=== PATIENT | male | born 1935 | race Caucasian/White ===

== ENCOUNTER 2016-12-26 20:10 | Inpatient (IN) | payer MEDICARE ==
[~2016-12-26] VITALS: Ht 170.2 cm; Wt 70.5 kg
[~2016-12-26 20:10] MED LIST: AUGM500T7 PO; CALCTAB98 PO; CENTCHW3 PO; CO Q60CA2 PO; FISH1200 PO; FOLI400T30 PO; GLUCTAB6 PO; PANT40IN3 PO; [UNRECOGNIZED DRUG - CODE] PO
[2016-12-26 20:16] VITALS: BP 185/84; PULSE 76; RESP 26; TEMP 97.7; O2SAT 96
[2016-12-26] MEDS ORDERED: ZYTI250T PO (20:27)
[2016-12-26] MEDS ORDERED: FOLI20CA (20:27)
[2016-12-26] MEDS ORDERED: PLAV75TA29 PO (20:27)
[2016-12-26] MEDS ORDERED: GLUCCAP (20:27)
[2016-12-26] MEDS ORDERED: ROSU5 PO (20:27)
[2016-12-26] MEDS ORDERED: COQ1100C (20:27)
[2016-12-26] MEDS ORDERED: SODIUM CHLORIDE 0.9% FLUSH 5 ML FLUSH IVF PRN (20:45)
[2016-12-26 21:00] LABS: AUTOMATED NEUTROPHIL # 6.9 TH/MM3 (1.8-7.7); BASOPHIL # 0.1 TH/MM3 (0-0.2); BASOPHIL % 0.8 % (0.0-2.0); EOSINOPHIL % 0.2 % (0.0-4.0); HEMATOCRIT 33.8 % (39.0-51.0); HEMO FLAGS DIFF FINAL; LYMPH % 13.2 % (9.0-44.0); LYMPHOCYTE # 1.2 TH/MM3 (1.0-4.8); MEAN CORPUSCULAR HEMOGLOBIN 34.1 PG (27.0-34.0); MEAN CORPUSCULAR HGB CONC 35.2 % (32.0-36.0); NEUT % 77.8 % (16.0-70.0); PLATELET COUNT 153 TH/MM3 (150-450); RED BLOOD COUNT 3.49 MIL/MM3 (4.50-5.90); WHITE BLOOD COUNT 8.9 TH/MM3 (4.0-11.0)
[2016-12-26 21:15] LABS: ANION GAP 12 MEQ/L (5-15); AST (GOT) 35 U/L (15-37); BICARBONATE 20.1 MEQ/L (21.0-32.0); BLOOD UREA NITROGEN 34 MG/DL (7-18); CHLORIDE 105 MEQ/L (98-107); GLOMERULAR FILTRATION RATE 42 ML/MIN (>89); POTASSIUM 3.5 MEQ/L (3.5-5.1); SODIUM (NA) 137 MEQ/L (136-145)
[2016-12-26] MEDS ORDERED: MORPHINE SULFATE 4 MG/ML INJ IV PUSH ONE (21:15)
[2016-12-26 21:18] LABS: ALKALINE PHOSPHATASE 52 U/L (45-117); ALT (GPT) 27 U/L (12-78); TOTAL BILIRUBIN ADULT 0.9 MG/DL (0.2-1.0)
[2016-12-26 21:23] LABS: PROTHROMBIN TIME - PATIENT 10.8 SEC (9.8-11.6)
--- NOTE | 2016-12-26 22:19 | PD ---
HPI Chief Complaint: Bleeding Time Seen by Provider: 20:28 Travel History International Travel<30 days: No Contact w/Intl Traveler<30days: No Traveled to known affect area: No History of Present Illness HPI 81-year-old male with history of prostate cancer status post prostate resection , [facility] urologist Dr. Cid earlier today and had a Maldonado catheter placed, brought in by EMS from home for evaluation of severe suprapubic and penile pain. The patient reports that he was having some suprapubic pain and around noon today which worsen, so he decided to present to the urology office. He is not sure exactly why they placed a Maldonado catheter, but it sounds like he may been in urinary retention. Patient has also noted a significant amount of blood in the Maldonado bag. Pain is 12 out of 10, constant, pressure-like. The patient was given 4 mg of IV morphine by EMS with moderate improvement in pain. He denies fevers or chills. No nausea or vomiting. PFSH Past Medical History Hx Anticoagulant Therapy: Yes (PLAVIX) Arthritis: Yes Asthma: No Autoimmune Disease: No Blood Disorders: Yes Anxiety: No Depression: No Heart Rhythm Problems: No Cancer: Yes (PROSTATE WAS REMOVED) Cardiac Catheterization: Yes Cardiovascular Problems: Yes High Cholesterol: Yes Chemotherapy: No Chest Pain: Yes Congestive Heart Failure: Yes COPD: Yes Cerebrovascular Accident: No Coronary Artery Disease: Yes Diabetes: No Diminished Hearing: Yes (PAUMA) Endocrine: No Gastrointestinal Disorders: Yes GERD: Yes Genitourinary: Yes Hiatal Hernia: No Hypertension: Yes Immune Disorder: No Implanted Vascular Access Dvce: Yes 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) Neurologic: Yes Psychiatric: No Reproductive: No Respiratory: No Immunizations Current: Yes Myocardial Infarction: Yes Radiation Therapy: Yes Sleep Apnea: No Thyroid Disease: No Ulcer: No Tetanus Vaccination: > 5 Years Past Surgical History Abdominal Surgery: No AICD: No Arteriovenous Shunt: No Body Medical Devices: Coronary Stents x 7, Lg Stent x 1 in Upper Right Thigh Cardiac Surgery: Yes (7 STENTS IN HEART , RIGHT THIGH WITH STENT) Coronary Stent: Yes (5 STENTS) Ear Surgery: No Eye Surgery: Yes (VIKI CATARACTS REMOVED) Genitourinary Surgery: Yes (PROSTATE REMOVED, CYSTOSCOPY X 5) Insulin Pump: No Joint Replacement: No Oral Surgery: No Pacemaker: No Thoracic Surgery: No Other Surgery: Yes (CATARACTS) Social History Alcohol Use: Yes Tobacco Use: No (QUIT 1991) Substance Use: No Allergies-Medications (Allergen,Severity, Reaction): Coded Allergies: LIZZY Inhibitors (Verified Allergy, Severe, 12/25/15) Percocet (Verified Allergy, Severe, Hallucinations, 12/25/15) Zithromax (Verified Allergy, Severe, 12/25/15) Reported Meds & Prescriptions Reported Meds & Active Scripts Active Reported Crestor (Rosuvastatin Calcium) 5 Mg Tab 5 Mg PO DAILY Plavix (Clopidogrel Bisulfate) 75 Mg Tab 75 Mg PO DAILY Folic Acid 20 Mg Cap Glucosamine Chondroitin C (Arsasmiasjh-Jhevdudripc-Otmxme) 1 Cap Cap Coq10 (Coenzyme Q10 (Ubidecarenone)) 100 Mg Cap Zytiga (Abiraterone) 250 Mg Tab 1,000 Mg PO DAILY Hazardous agent; use appropriate precautions for handling & disposal. Take on an empty stomach, 1 hr before or 2 hrs after food. Swallow whole, do not crush or chew. Fish Oil (Pep-3 Fatty Acids) 1,200 Mg Cap 1 Cap PO DAILY Review of Systems Except as stated in HPI: all other systems reviewed are Neg Physical Exam Narrative GENERAL: Well-developed, well-nourished, mild distress secondary to pain. SKIN: Warm and dry. No pallor. HEAD: Atraumatic. Normocephalic. EYES: Pupils equal and round. No scleral icterus. No injection or drainage. ENT: Mucous membranes pink and moist. CARDIOVASCULAR: Regular rate and rhythm. RESPIRATORY: No accessory muscle use. Clear to auscultation. Breath sounds equal bilaterally. GASTROINTESTINAL: Abdomen soft, nondistended. Mild suprapubic tenderness. Rest of abdomen is soft and nontender. No peritoneal signs. Normal bowel sounds. : Maldonado in place with dark red blood in Maldonado bag. Normal external genitalia. No crepitus or skin color changes. No masses. MUSCULOSKELETAL: No obvious deformities. No clubbing. No cyanosis. No edema. NEUROLOGICAL: Awake and alert. No obvious cranial nerve deficits. Motor grossly within normal limits. Normal speech. PSYCHIATRIC: Appropriate mood and affect; insight and judgment normal. Data Data Last Documented VS Vital Signs Date Time Temp Pulse Resp B/P Pulse Ox O2 Delivery O2 Flow Rate FiO2 12/26/16 20:16 97.7 76 26 185/84 96 Orders Complete Blood Count With Diff (12/26/16 20:34) Comprehensive Metabolic Panel (12/26/16 20:34) Prothrombin Time / Inr (Pt) (12/26/16 20:34) Act Partial Throm Time (Ptt) (12/26/16 20:34) Iv Access Insert/Monitor (12/26/16 20:34) Ecg Monitoring (12/26/16 20:34) Oximetry (12/26/16 20:34) Sodium Chloride 0.9% Flush (Ns Flush) (12/26/16 20:45) Ct Abd/Pel W Iv Contrast(Rout) (12/26/16 20:44) Morphine Inj (Morphine Inj) (12/26/16 21:15) Iohexol 350 Inj (Omnipaque 350 Inj) (12/26/16 22:38) Bladder/Catheter Irrigation (12/26/16 23:08) Lidocaine 2% Jelly (Xylocaine 2% Jelly) (12/26/16 23:15) Urinary Catheter Insert/Apply (12/26/16 23:08) Labs Laboratory Tests Test 12/26/16 20:46 White Blood Count 8.9 TH/MM3 Red Blood Count 3.49 MIL/MM3 Hemoglobin 11.9 GM/DL Hematocrit 33.8 % Mean Corpuscular Volume 97.0 FL Mean Corpuscular Hemoglobin 34.1 PG Mean Corpuscular Hemoglobin 35.2 % Concent Red Cell Distribution Width 15.0 % Platelet Count 153 TH/MM3 Mean Platelet Volume 9.3 FL Neutrophils (%) (Auto) 77.8 % Lymphocytes (%) (Auto) 13.2 % Monocytes (%) (Auto) 8.0 % Eosinophils (%) (Auto) 0.2 % Basophils (%) (Auto) 0.8 % Neutrophils # (Auto) 6.9 TH/MM3 Lymphocytes # (Auto) 1.2 TH/MM3 Monocytes # (Auto) 0.7 TH/MM3 Eosinophils # (Auto) 0.0 TH/MM3 Basophils # (Auto) 0.1 TH/MM3 CBC Comment DIFF FINAL Differential Comment Prothrombin Time 10.8 SEC Prothromb Time International 1.0 RATIO Ratio Activated Partial 21.0 SEC Thromboplast Time Sodium Level 137 MEQ/L Potassium Level 3.5 MEQ/L Chloride Level 105 MEQ/L Carbon Dioxide Level 20.1 MEQ/L Anion Gap 12 MEQ/L Blood Urea Nitrogen 34 MG/DL Creatinine 1.60 MG/DL Estimat Glomerular Filtration 42 ML/MIN Rate Random Glucose 156 MG/DL Calcium Level 8.9 MG/DL Total Bilirubin 0.9 MG/DL Aspartate Amino Transf 35 U/L (AST/SGOT) Alanine Aminotransferase 27 U/L (ALT/SGPT) Alkaline Phosphatase 52 U/L Total Protein 7.3 GM/DL Albumin 3.7 GM/DL [facility] Medical Decision Making Medical Screen Exam Complete: Yes Emergency Medical Condition: Yes Medical Record Reviewed: Yes Differential Diagnosis Hematuria, urinary retention, anemia Narrative Course Chart review shows that the patient had a CT abdomen pelvis in 2014 which shows a large bladder stone. Patient's Maldonado has been flushed with about a liter of normal saline and is still producing dark red blood. He is on Plavix. This was discussed with on- call urologist Dr. Black who agrees that if dark red bloody is not clearing, then CBI should be started and the patient should be admitted for overnight observation with urology consultation. Initial vital signs show heart rate 76, blood pressure 185/84, pulse ox 96% on room air, axillary temp of 97.7F. CBC shows to be BC 8.9, hemoglobin 11.9, hematocrit 33.8, platelets 153 CMP is remarkable for BUN 34, creatinine 1.6, GFR [address] abdomen pelvis: CONCLUSION: Large heterogeneous filling defect in the urinary bladder. This may represent a combination of mass and hemorrhage. Mild/moderate bilateral hydronephrosis. Enlarging pancreatic cystic lesion which may represent a benign epithelial cyst. Colonic diverticulosis without evidence of active inflammatory disease. No evidence of malignant lymphadenopathy or destructive bone lesions. Heavily calcified coronary arteries. Evidence of previous prostate surgery. The patient's pain has significantly improved after receiving morphine and after his Maldonado has been flushed. A bedside ultrasound was performed on initial presentation and show that the bladder was moderately filled. The patient was made aware of all findings. His urine is still dark red. Three -way catheter will be inserted for CBI and the patient will be admitted for overnight observation for urology consultation. The patient reports that his urologist is Dr. Lopez. Case discussed with [facility] hospitalist Dr. Denise. The patient will be admitted to their service under Dr. Soto. Diagnosis Primary Impression: Gross hematuria Additional Impression: Urinary retention Admitting Information Admitting Physician Requests: Observation Arsen Victoria MD Dec 26, 2016 22:19
[2016-12-26] MEDS ORDERED: IOHEXOL 350 MG/ML 10 ML VIAL (for RAD DIAG) IV ONE (22:38)
--- NOTE | 2016-12-26 23:04 | RADRPT ---
EXAM DATE/TIME: 12/26/2016 22:20 [place] COMPARISON: CT ABDOMEN & PELVIS W CONTRAST, July 06, 2015, 1:40. INDICATIONS : Recent catheter placement, now with pain and bleeding. IV CONTRAST: 94 cc Omnipaque 350 (iohexol) IV ORAL CONTRAST: No oral contrast ingested. RADIATION DOSE: 20.41 CTDIvol (mGy) MEDICAL HISTORY : Cardiovascular disease. Hypertension. Carcinoma, prostate. SURGICAL HISTORY : Prostatectomy. ENCOUNTER: Initial ACUITY: 1 day PAIN SCALE: 5/10 LOCATION: Bilateral lower quadrant TECHNIQUE: Volumetric scanning of the abdomen and pelvis was performed. Using automated exposure control and ad justment of the mA and/or kV according to patient size, radiation dose was kept as low as reasonably achievable to obtain optimal diagnostic quality images. FINDINGS: LOWER LUNGS: The visualized lower lungs are clear. LIVER: Homogeneous density without lesion. There is no dilation of the biliary tree. No calcified gallston es. SPLEEN: Normal size without lesion. PANCREAS: A cystic lesion in the body of the pancreas has enlarged compared to prior study in 2015. It previous ly measured 1.9 cm and currently measures 3.0 cm. It continues to have the appearance of the simple c yst without evidence of abnormal enhancement or nodularity. Pancreas is otherwise unremarkable. KIDNEYS: Mild to moderate hydronephrosis has developed within the right kidney. There is mild distention of th e right ureter to the urinary bladder. The left renal collecting system also appears mildly distended . There are no focal suspicious renal lesions. ADRENAL GLANDS: Within normal limits. VASCULAR: Calcific upper tract disease is seen throughout the abdominal aorta. Aortic diameter stable. BOWEL/MESENTERY: Numerous diverticula are present throughout the colon. There are no active inflammatory changes. Ther e is no evidence of obstructive gas pattern or extra intestinal fluid collections. ABDOMINAL WALL: Within normal limits. RETROPERITONEUM: There is no lymphadenopathy. BLADDER: A large heterogeneous appearing filling defect is identified in the urinary bladder. Maldonado catheter i s noted in place. REPRODUCTIVE: Postsurgical clips are seen in the region of the prostate gland. INGUINAL: There is no lymphadenopathy or hernia. MUSCULOSKELETAL: Within normal limits for patient age. CONCLUSION: Large heterogeneous filling defect in the urinary bladder. This may represent a combination of mass a nd hemorrhage. Mild/moderate bilateral hydronephrosis. Enlarging pancreatic cystic lesion which may represent a benign epithelial cyst. Colonic diverticulosis without evidence of active inflammatory disease. No evidence of malignant lymphadenopathy or destructive bone lesions. Heavily calcified coronary arteries. Evidence of previous prostate surgery. Goyo Reese MD on December 26, 2016 at 22:51 Board Certified Radiologist. This report was verified electronically.
[2016-12-26] MEDS ORDERED: LIDOCAINE 2% JELLY 30 ML TUBE TOPICAL ONE (23:15)
--- NOTE | 2016-12-26 23:41 | HHI.HP ---
HPI Service [facility] Hospitalists Primary Care Physician Opal Samson M.D. Admission Diagnosis gross hematuria, urinary retention Chief Complaint: recurrent bleeding after quintanilla inserted at urology Travel History International Travel<30 Days: No Contact w/Intl Traveler <30 Da: No Traveled to Known Affected Are: No History of Present Illness 81-year-old male with history of prostate cancer status post prostate resection , [facility] urologist Dr. Cid earlier today and had a Quintanilla catheter placed, brought in by EMS from home for evaluation of severe suprapubic and penile pain. The patient reports that he was having some suprapubic pain and around noon today which worsen, so he decided to present to the urology office. He is not sure exactly why they placed a Quintanilla catheter, but it sounds like he may been in urinary retention. Patient has also noted a significant amount of blood in the Quintanilla bag. Pain is 12 out of 10, constant, pressure-like. The patient was given 4 mg of IV morphine by EMS with moderate improvement in pain. He denies fevers or chills. No nausea or vomiting Patient's Quintanilla has been flushed with about a liter of normal saline and is still producing dark red blood. He is on Plavix. This was discussed with on- call urologist Dr. Black who agrees that if dark red bloody is not clearing, then CBI should be started and the patient should be admitted for overnight observation with urology consultation. 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 Review of Systems Genitourinary: COMPLAINS OF: Hematuria Past Family Social History Past Medical History cad s/p stent djd chf,copd,hyperlipidemia mi Past Surgical History prostate removal according to patient bone mets on chemo agent stents Reported Medications crestor 5 ,plavix 75 folic acid,zytiga Allergies: Coded Allergies: LIZZY Inhibitors (Verified Allergy, Severe, 12/25/15) Percocet (Verified Allergy, Severe, Hallucinations, 12/25/15) Zithromax (Verified Allergy, Severe, 12/25/15) Social History NS,ND Physical Exam Vital Signs Vital Signs Date Time Temp Pulse Resp B/P Pulse Ox O2 Delivery O2 Flow Rate FiO2 12/26/16 20:16 97.7 76 26 185/84 96 Physical Exam GENERAL: This is a well-nourished, well-developed patient, in no apparent distress. SKIN: No rashes, ecchymoses or lesions. Cool and dry. HEAD: Atraumatic. Normocephalic. No temporal or scalp tenderness. EYES: Pupils equal round and reactive. Extraocular motions intact. No scleral icterus. No injection or drainage. ENT: Nose without bleeding, purulent drainage or septal hematoma. Throat without erythema, tonsillar hypertrophy or exudate. Uvula midline. Airway patent. NECK: Trachea midline. No JVD or lymphadenopathy. Supple, nontender, no meningeal signs. CARDIOVASCULAR: Regular rate and rhythm without murmurs, gallops, or rubs. RESPIRATORY: Clear to auscultation. Breath sounds equal bilaterally. No wheezes , rales, or rhonchi. GASTROINTESTINAL: Abdomen pain on bladder palpation and lower abdomen no rebound. MUSCULOSKELETAL: Extremities without clubbing, cyanosis, or edema. No joint tenderness, effusion, or edema noted. No calf tenderness. Negative Homans sign bilaterally. NEUROLOGICAL: Awake and alert. Cranial nerves II through XII intact. Motor and sensory grossly within normal limits. Five out of 5 muscle strength in all muscle groups. Normal speech. Laboratory Laboratory Tests Test 12/26/16 20:46 White Blood Count 8.9 Red Blood Count 3.49 Hemoglobin 11.9 Hematocrit 33.8 Mean Corpuscular Volume 97.0 Mean Corpuscular Hemoglobin 34.1 Mean Corpuscular Hemoglobin 35.2 Concent Red Cell Distribution Width 15.0 Platelet Count 153 Mean Platelet Volume 9.3 Neutrophils (%) (Auto) 77.8 Lymphocytes (%) (Auto) 13.2 Monocytes (%) (Auto) 8.0 Eosinophils (%) (Auto) 0.2 Basophils (%) (Auto) 0.8 Neutrophils # (Auto) 6.9 Lymphocytes # (Auto) 1.2 Monocytes # (Auto) 0.7 Eosinophils # (Auto) 0.0 Basophils # (Auto) 0.1 CBC Comment DIFF FINAL Differential Comment Prothrombin Time 10.8 Prothromb Time International 1.0 Ratio Activated Partial 21.0 Thromboplast Time Sodium Level 137 Potassium Level 3.5 Chloride Level 105 Carbon Dioxide Level 20.1 Anion Gap 12 Blood Urea Nitrogen 34 Creatinine 1.60 Estimat Glomerular Filtration 42 Rate Random Glucose 156 Calcium Level 8.9 Total Bilirubin 0.9 Aspartate Amino Transf 35 (AST/SGOT) Alanine Aminotransferase 27 (ALT/SGPT) Alkaline Phosphatase 52 Total Protein 7.3 Albumin 3.7 Result Diagram: 12/26/16204512/26/162045 Imaging Last 24 hours Impressions Abdomen/Pelvis CT 12/26/162043 Signed Impressions: Service Date/Time: Monday, December 26, 2016 22:20 - CONCLUSION: Large heterogeneous filling defect in the urinary bladder. This may represent a combination of mass and hemorrhage. Mild/moderate bilateral hydronephrosis. Enlarging pancreatic cystic lesion which may represent a benign epithelial cyst. Colonic diverticulosis without evidence of active inflammatory disease. No evidence of malignant lymphadenopathy or destructive bone lesions. Heavily calcified coronary arteries. Evidence of previous prostate surgery. Goyo Reese MD Course several attempts at irrigation failed Assessment and Plan Problem List: (1) Gross hematuria Status: Acute Plan: consult urology CBI as per urology (2) Urinary retention Status: Chronic Plan: has quintanilla feeling better with less pain (3) History of prostate cancer Status: Chronic Plan: stable Assessment and Plan further plan as per urology evaluation Code Status full Discussed Condition With patient Malcolm Denise MD Dec 26, 2016 23:41
[2016-12-26] MEDS ORDERED: ONDANSETRON HCL 4 MG/2 ML VIAL IVP PRN (23:45)
[2016-12-26] MEDS ORDERED: SODIUM CHLORIDE 0.9% FLUSH 5 ML FLUSH FLUSH PRN (23:45)
[2016-12-26] MEDS ORDERED: NALOXONE HCL 0.4 MG/ML AMP IV PRN (23:45)
[2016-12-27] VITALS (11 sets, daily range): BP systolic 86–157; BP diastolic 48–84; PULSE 72–93; RESP 18–22; TEMP 97.8–99.5; O2SAT 88–98
[2016-12-27] MEDS: SODIUM CHLOR 0.45% 1000 ML INJ 1,000 ML IV SCH ×4 (00:33→18:40)
[2016-12-27] MEDS: MORPHINE SULFATE 4 MG/ML INJ IV PRN ×2 (02:11→06:01)
[2016-12-27 08:45] LABS: AUTOMATED NEUTROPHIL # 8.8 TH/MM3 (1.8-7.7); BASOPHIL # 0.1 TH/MM3 (0-0.2); BASOPHIL % 0.9 % (0.0-2.0); EOSINOPHIL % 0.2 % (0.0-4.0); HEMATOCRIT 32.1 % (39.0-51.0); HEMO FLAGS DIFF FINAL; LYMPH % 9.1 % (9.0-44.0); MEAN CELL VOLUME 98.5 FL (80.0-100.0); MEAN CORPUSCULAR HEMOGLOBIN 34.1 PG (27.0-34.0); MEAN CORPUSCULAR HGB CONC 34.6 % (32.0-36.0); MONO % 7.8 % (0.0-8.0); PLATELET COUNT 162 TH/MM3 (150-450); RED BLOOD COUNT 3.25 MIL/MM3 (4.50-5.90); RED CELL DISTRIBUTION WIDTH 15.1 % (11.6-17.2); WHITE BLOOD COUNT 10.7 TH/MM3 (4.0-11.0)
[2016-12-27] MEDS ORDERED: BELLADONNA ALKALOIDS/OPIUM 60 MG SUPP RECTAL ONE (09:00)
[2016-12-27] MEDS ORDERED: [UNRECOGNIZED DRUG - OTHER] PO SCH (09:00)
[2016-12-27] MEDS: SODIUM CHLORIDE 0.9% FLUSH 5 ML FLUSH FLUSH SCH ×2 (09:00→20:07)
[2016-12-27] MEDS ORDERED: ABIRATERONE ACETATE 250 MG PO SCH (09:00)
[2016-12-27 09:07] LABS: BICARBONATE 22.4 MEQ/L (21.0-32.0); POTASSIUM 3.8 MEQ/L (3.5-5.1)
--- NOTE | 2016-12-27 09:34 | HHI.PR ---
Subjective Remarks Pt rather lethargic at the time of examination and reports that he has slept well. He feels that his pain is slightly better Abdomen is distended Cannot recall when his last BM was. He states that he took some "pain meds" prior to admission but cannot recall which one. Objective Vitals Vital Signs Date Time Temp Pulse Resp B/P Pulse Ox O2 Delivery O2 Flow Rate FiO2 12/27/16 08:06 98.0 93 22 105/56 94 12/27/16 04:22 97.8 78 18 135/68 98 12/27/16 03:18 14 12/27/16 01:57 98.8 81 18 91 12/27/16 01:57 157/84 12/27/16 00:21 72 138/64 12/26/16 20:16 97.7 76 26 185/84 96 12/26/16 12/26/16 12/27/16 15:00 23:00 07:00 Output Total 2000 ml Balance -2000 ml Output Urine Total 2000 ml Result Diagram: 12/27/16 0833 12/27/16 0833 Other Results Laboratory Tests Test 12/26/16 12/27/16 20:46 08:33 White Blood Count 8.9 TH/MM3 10.7 TH/MM3 Red Blood Count 3.49 MIL/MM3 3.25 MIL/MM3 Hemoglobin 11.9 GM/DL 11.1 GM/DL Hematocrit 33.8 % 32.1 % Mean Corpuscular Volume 97.0 FL 98.5 FL Mean Corpuscular Hemoglobin 34.1 PG 34.1 PG Mean Corpuscular Hemoglobin 35.2 % 34.6 % Concent Red Cell Distribution Width 15.0 % 15.1 % Platelet Count 153 TH/MM3 162 TH/MM3 Mean Platelet Volume 9.3 FL 8.9 FL Neutrophils (%) (Auto) 77.8 % 82.0 % Lymphocytes (%) (Auto) 13.2 % 9.1 % Monocytes (%) (Auto) 8.0 % 7.8 % Eosinophils (%) (Auto) 0.2 % 0.2 % Basophils (%) (Auto) 0.8 % 0.9 % Neutrophils # (Auto) 6.9 TH/MM3 8.8 TH/MM3 Lymphocytes # (Auto) 1.2 TH/MM3 1.0 TH/MM3 Monocytes # (Auto) 0.7 TH/MM3 0.8 TH/MM3 Eosinophils # (Auto) 0.0 TH/MM3 0.0 TH/MM3 Basophils # (Auto) 0.1 TH/MM3 0.1 TH/MM3 CBC Comment DIFF FINAL DIFF FINAL Differential Comment Prothrombin Time 10.8 SEC Prothromb Time International 1.0 RATIO Ratio Activated Partial 21.0 SEC Thromboplast Time Sodium Level 137 MEQ/L 138 MEQ/L Potassium Level 3.5 MEQ/L 3.8 MEQ/L Chloride Level 105 MEQ/L 104 MEQ/L Carbon Dioxide Level 20.1 MEQ/L 22.4 MEQ/L Anion Gap 12 MEQ/L 12 MEQ/L Blood Urea Nitrogen 34 MG/DL 35 MG/DL Creatinine 1.60 MG/DL 2.19 MG/DL Estimat Glomerular Filtration 42 ML/MIN 29 ML/MIN Rate Random Glucose 156 MG/DL 140 MG/DL Calcium Level 8.9 MG/DL 8.5 MG/DL Total Bilirubin 0.9 MG/DL Aspartate Amino Transf 35 U/L (AST/SGOT) Alanine Aminotransferase 27 U/L (ALT/SGPT) Alkaline Phosphatase 52 U/L Total Protein 7.3 GM/DL Albumin 3.7 GM/DL Imaging Last 24 hours Impressions Abdomen/Pelvis CT 12/26/162043 Signed Impressions: Service Date/Time: Monday, December 26, 2016 22:20 - CONCLUSION: Large heterogeneous filling defect in the urinary bladder. This may represent a combination of mass and hemorrhage. Mild/moderate bilateral hydronephrosis. Enlarging pancreatic cystic lesion which may represent a benign epithelial cyst. Colonic diverticulosis without evidence of active inflammatory disease. No evidence of malignant lymphadenopathy or destructive bone lesions. Heavily calcified coronary arteries. Evidence of previous prostate surgery. Goyo Reese MD Objective Remarks General: NAD, lethargic Chest: CTA Cardiac: Regular Abd: Distended, diffuse tenderness, Minimal bowel sounds : Maldonado catheter in place with hematuria noted Ext: No edema A/P Problem List: (1) Gross hematuria Status: Acute Plan: - Pt with prostate cancer s/p prostate resection, follows with Dr. Cid on and had a Maldonado catheter placed - He was brought in by EMS from home for evaluation of severe suprapubic pain, penile pain, and hematuria - CT Abd/pelvis (12/26) --> Large heterogeneous filling defect in the urinary bladder. This may represent a combination of mass and hemorrhage. Mild/moderate bilateral hydronephrosis. Enlarging pancreatic cystic lesion which may represent a benign epithelial cyst. Colonic diverticulosis without evidence of active inflammatory disease. No evidence of malignant lymphadenopathy or destructive bone lesions. Heavily calcified coronary arteries. Evidence of previous prostate surgery. - Pt is receiving CBI currently but is still having gross hematuria and pain - Urology is consulted - Monitor H/H - Start B&O supp for spasms - Supportive care - DVT prophylaxis (2) Urinary retention Status: Chronic Plan: - See above. (3) Acute renal insufficiency Status: Acute Plan: - Pt with acute renal insufficiency - Pt with noted bilateral hydronephrosis on CT scan - Urology is consulted - Repeat labs today are worse ?secondary to IV contrast - Monitor labs - Cont. IVF (4) History of prostate cancer Status: Chronic Plan: - See above. (5) CAD (coronary artery disease) Status: Chronic Plan: - Pts Plavix has been held due to gross hematuria - Pt has had issues previously with orthostatic hypotension, not currently on any BP meds (6) Hypertension Status: Chronic Plan: - Stable currently - See above. (7) GERD (gastroesophageal reflux disease) Status: Chronic Assessment and Plan Patient examined. Assessment and plan formulated with Joanna Jin PA-C. I agree with the above. Joanna Jin Dec 27, 2016 09:34 Joe Soto DO Dec 28, 2016 09:18
[2016-12-27] MEDS ORDERED: MAGNESIUM HYDROXIDE SUSP 30 ML CUP PO PRN (10:00)
[2016-12-27] MEDS ORDERED: BISACODYL 10 MG SUPP RECTAL PRN (10:00)
[2016-12-27] MEDS: ATORVASTATIN 10 MG TAB PO SCH (10:19)
[2016-12-27] MEDS: DOCUSATE SODIUM 100 MG CAP PO SCH ×2 (10:20→20:08)
[2016-12-27] MEDS: BELLADONNA ALKALOIDS/OPIUM 60 MG SUPP RECTAL SCH ×3 (12:00→18:00)
--- NOTE | 2016-12-27 13:41 | MB ---
cc: SHANNAN PAUL MD DATE OF CONSULTATION 12/27/2016 REASON FOR CONSULTATION 1. Gross hematuria with clot retention 2. History of metastatic castrate resistant prostate cancer 3. History of radiation cystitis. 4. History of urinary retention. 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 He initially presented to [facility] yesterday afternoon with abdominal pain, gross hematuria with intermittent clots. He reported that the pain occurred around his suprapubic region and began to worsen to a 12/10. In the office, he was seen by who recommended placing a Maldonado catheter. The catheter was then carefully inserted and he was discharged home. Once he was home, he noticing a significant amount of blood in his urine and it felt like a constant pressure-like pain in his lower abdominal region given the pain was a 12/10. Due to this continued pain and the it appeared the catheter was not draining, he came to the ER for further evaluation. He then came the ER where the catheter was irrigated out with over a liter of normal saline, but continued to produce dark red blood. His case was discussed the on-call urologist who recommended starting a CVI and urology consultation. This morning, I received a phone call that his catheter had been producing a little output and he was having severe abdominal pain. A post-residual void was done which showed over 300 in his bladder. The catheter was then exchanged out to a 22-Lithuanian three-way and over 800 mL of red urine then was drained. He was then restarted on light CBI. Currently the patient feels his pain has improved with a catheter in place. Denies fevers, chills, flank pain, nausea or vomiting. He had a similar episode of urinary retention two weeks ago in when he was unable to urinate. He came to [facility] and a catheter was placed for over a liter of urine. He was seen by myself in the office the next day. He was started on Flomax and the catheter was removed. He said since that time, he thought he was peeing satisfactorily, but it still was passing intermittent blood, however it got to the point yesterday where he was just in so much pain, he needed to be further evaluated. He is tolerating Zytiga and prednisone well for his castrate resistant metastatic prostate cancer. He denies any history of kidney stones. PAST HISTORY Significant for: 1. Castrate resistant metastatic prostate cancer 2. Coronary artery disease 3. Degenerative disk disease 4. CHF 5. COPD 6. Hyperlipidemia 7. History of NM. PAST SURGICAL HISTORY Status post radical retropubic prostatectomy MEDICATIONS Home medications include: 1. Zytiga 2. Prednisone 3. Plavix 4. Crestor 5. Flomax 0.4 mg daily ALLERGIES Include LIZZY INHIBITORS, ZITHROMAX, AND PERCOCET. SOCIAL HISTORY Denies smoking, alcohol or illicit drugs. He lives at home alone. REVIEW OF SYSTEMS See HPI, otherwise all systems reviewed are otherwise negative. FAMILY HISTORY Denies history of urolithiasis or prostate cancer. PHYSICAL EXAM VITAL SIGNS: Temperature 98.7, pulse 80, respiratory rate 20, blood pressure 97/53, sat 97% on room air. GENERAL: He is alert and oriented, but slightly sleepy and appears to be in no apparent distress. HEAD: Normocephalic, atraumatic. EYES: No scleral icterus. External ocular muscles intact. NECK: Trachea is midline. Neck is supple. No JVD. SKIN: No ulcers or rashes. LUNGS: Clear to auscultation bilaterally. No wheezes, rales or rhonchi. HEART: Regular rate and rhythm. ABDOMEN: Soft, nontender, nondistended. Positive bowel sounds. His bladder is nonpalpable. GENITOURINARY: He CVA tenderness bilaterally. Penis is circumcised. Testes are descended bilaterally, normal size and consistency. Currently he has a 22 Lithuanian, three-way catheter draining red colored urine on light CBI. EXTREMITIES: Nontender, no clubbing, cyanosis, edema. PSYCH: Flat affect. LABS Labs show a sodium 138, potassium 3.8, chloride 104, bicarb 22.4, BUN 35, creatinine 2.19, glucose 140. White count 10.7, hemoglobin 11.1, hematocrit 32.1, platelet count 162. His INR was 1.0. IMAGING STUDIES CT ABDOMEN AND PELVIS Without contrast images were reviewed and agreed with radiologists report. He has a large heterogeneous mass in his bladder consistent with possible blood clot versus a bladder tumor. He also has mild right hydronephrosis common with a kidney stone. ASSESSMENT AND PLAN The patient is an 81-year-old male with metastatic castrate resistant prostate cancer currently on Zytiga and prednisone with known radiation cystitis admitted with gross hematuria and clot retention. We will continue the CBI to flushes his bladder. We will irrigate as needed. We will start him on IV antibiotics. We will go ahead and get him scheduled for cystoscopy, clot evacuation, possible TURBT to be done tomorrow. I discussed the procedure risks with him including risks, benefits and alternatives. He elected to proceed and an informed consent was obtained. We will also start him on Flomax 0.4 mg daily. MD BLAS Antonio/ROSALIE /12:53 PM /1:17 PM
[2016-12-27] MEDS ORDERED: SODIUM CHLOR 0.45% 1000 ML INJ 1,000 ML IV ONE (16:30)
[2016-12-27] MEDS: TAMSULOSIN HCL 0.4 MG CAP PO SCH (17:39)
[2016-12-28] VITALS: BP 118/62; PULSE 78; RESP 18; TEMP 98.8; O2SAT 98
[2016-12-28] MEDS: BELLADONNA ALKALOIDS/OPIUM 60 MG SUPP RECTAL SCH ×4 (00:58→17:45)
[2016-12-28 02:47] VITALS: BP 109/57; PULSE 92; RESP 18; TEMP 98.4; O2SAT 96
[2016-12-28] MEDS: SODIUM CHLOR 0.45% 1000 ML INJ 1,000 ML IV SCH ×2 (04:28→14:17)
[2016-12-28 06:25] LABS: AUTOMATED NEUTROPHIL # 7.3 TH/MM3 (1.8-7.7); BASOPHIL # 0.1 TH/MM3 (0-0.2); BASOPHIL % 0.6 % (0.0-2.0); EOSINOPHIL # 0.1 TH/MM3 (0-0.4); EOSINOPHIL % 1.2 % (0.0-4.0); HEMATOCRIT 25.9 % (39.0-51.0); HEMO FLAGS DIFF FINAL; LYMPH % 9.3 % (9.0-44.0); LYMPHOCYTE # 0.8 TH/MM3 (1.0-4.8); MEAN CELL VOLUME 99.3 FL (80.0-100.0); MEAN CORPUSCULAR HEMOGLOBIN 34.2 PG (27.0-34.0); MEAN CORPUSCULAR HGB CONC 34.4 % (32.0-36.0); MONO % 8.8 % (0.0-8.0); NEUT % 80.1 % (16.0-70.0); PLATELET COUNT 131 TH/MM3 (150-450); RED BLOOD COUNT 2.61 MIL/MM3 (4.50-5.90); RED CELL DISTRIBUTION WIDTH 15.1 % (11.6-17.2); WHITE BLOOD COUNT 9.1 TH/MM3 (4.0-11.0)
[2016-12-28 07:07] LABS: BICARBONATE 22.1 MEQ/L (21.0-32.0); MAGNESIUM 2.1 MG/DL (1.5-2.5); POTASSIUM 4.1 MEQ/L (3.5-5.1)
[2016-12-28 07:29] VITALS: BP 112/58; PULSE 99; RESP 18; TEMP 98.8
[2016-12-28] MEDS: SODIUM CHLORIDE 0.9% FLUSH 5 ML FLUSH FLUSH SCH ×2 (07:37→20:02)
[2016-12-28] MEDS: ATORVASTATIN 10 MG TAB PO SCH (07:37)
[2016-12-28] MEDS: DOCUSATE SODIUM 100 MG CAP PO SCH ×2 (07:37→20:02)
[2016-12-28] MEDS: TAMSULOSIN HCL 0.4 MG CAP PO SCH (07:38)
[2016-12-28 07:48] VITALS: O2SAT 97
[2016-12-28] MEDS ORDERED: ONDANSETRON HCL 4 MG/2 ML VIAL IV PUSH ONE (08:15)
[2016-12-28] MEDS ORDERED: PHENYLEPH/NS 1000 MCG/10 ML SYR IV ONE (08:15)
[2016-12-28] MEDS ORDERED: PROPOFOL 200 MG/20 ML AMP IV ONE (08:15)
[2016-12-28] MEDS ORDERED: ePHEDrine/NS 50 MG/5 ML SYR IV ONE (08:15)
--- NOTE | 2016-12-28 09:25 | HHI.PR ---
Subjective Remarks Pt continues with hematuria. Pt is NPO for cystoscopy. Objective Vitals Vital Signs Date Time Temp Pulse Resp B/P Pulse Ox O2 Delivery O2 Flow Rate FiO2 12/28/16 07:48 97 12/28/16 07:29 98.8 99 18 112/58 12/28/16 02:47 98.4 92 18 109/57 96 12/28/16 00:00 98.8 78 18 118/62 98 12/27/16 20:00 Nasal Cannula 2.00 12/27/16 19:17 98.0 87 22 112/62 98 12/27/16 18:34 97 12/27/16 18:13 82 18 117/55 88 12/27/16 16:15 88 Nasal Cannula 2.00 12/27/16 16:14 86/56 12/27/16 15:57 99.5 88 18 88/48 95 12/27/16 15:53 98.8 88 20 90/50 94 12/27/16 12:08 98.7 80 20 97/53 94 12/27/16 11:11 18 12/27/16 12/27/16 12/28/16 15:00 23:00 07:00 Output Total 1080 ml 8650 ml 1500 ml Balance -1080 ml -8650 ml -1500 ml Output Urine Total 1080 ml 8650 ml 1500 ml Result Diagram: 12/28/16 0603 12/28/16 0603 Imaging Last 24 hours Impressions Abdomen/Pelvis CT 12/26/162043 Signed Impressions: Service Date/Time: Monday, December 26, 2016 22:20 - CONCLUSION: Large heterogeneous filling defect in the urinary bladder. This may represent a combination of mass and hemorrhage. Mild/moderate bilateral hydronephrosis. Enlarging pancreatic cystic lesion which may represent a benign epithelial cyst. Colonic diverticulosis without evidence of active inflammatory disease. No evidence of malignant lymphadenopathy or destructive bone lesions. Heavily calcified coronary arteries. Evidence of previous prostate surgery. Goyo Reese MD Objective Remarks General: NAD, lethargic Chest: CTA Cardiac: Regular Abd: Distended, diffuse tenderness, Minimal bowel sounds : Maldonado catheter in place with hematuria noted Ext: No edema A/P Problem List: (1) Gross hematuria Status: Acute Plan: - Pt with prostate cancer s/p prostate resection, follows with Dr. Cid on and had a Maldonado catheter placed - comgmt with Urology, Dr. Lopez - Pt has h/o metastatic castrate resistant prostate cancer - Pt is presently on Zytiga & prednisone - Pt has known radiation cystitis. - He was brought in by EMS from home for evaluation of severe suprapubic pain, penile pain, and hematuria - CT Abd/pelvis (12/26) --> Large heterogeneous filling defect in the urinary bladder. This may represent a combination of mass and hemorrhage. Mild/moderate bilateral hydronephrosis. Enlarging pancreatic cystic lesion which may represent a benign epithelial cyst. Colonic diverticulosis without evidence of active inflammatory disease. No evidence of malignant lymphadenopathy or destructive bone lesions. Heavily calcified coronary arteries. Evidence of previous prostate surgery. - Pt to undergo cystoscopy, clot evacuation, and possible TURP with Dr. Lopez later today (12/28/16) - flomax - CBI - IVFs - Monitor H/H - B&O supp for spasms - Supportive care - DVT prophylaxis (2) Urinary retention Status: Chronic Plan: - See above. (3) Acute renal insufficiency Status: Acute Plan: - Pt with acute renal insufficiency - Pt with noted bilateral hydronephrosis on CT scan - Urology is consulted - Repeat labs today are worse ?secondary to IV contrast - Monitor labs - Cont. IVF (4) History of prostate cancer Status: Chronic Plan: - See above. (5) CAD (coronary artery disease) Status: Chronic Plan: - Pts Plavix has been held due to gross hematuria - Pt has had issues previously with orthostatic hypotension, not currently on any BP meds (6) Hypertension Status: Chronic Plan: - Stable currently - See above. - Pt became hypotensive with Morphine hold pain medication for upcoming procedure (7) GERD (gastroesophageal reflux disease) Status: Chronic Problem Qualifiers (1) GERD (gastroesophageal reflux disease): Qualified Code: K21.9 - Gastroesophageal reflux disease, esophagitis presence not specified Joe Soto DO Dec 28, 2016 09:25
--- NOTE | 2016-12-28 10:20 | EKG ---
Date Performed: 12/27/2016 Time Performed: 21:16:00 PTAGE: 81 years EKG: Sinus rhythm WITH OCCASIONAL SUPRAVENTRICULAR PREMATURE COMPLEXES LEFT VENTRICULAR HYPERTROPHY AND ST-T CHANGE PO SSIBLE SEPTAL MYOCARDIAL INFARCTION ABNORMAL ECG PREVIOUS TRACING : 07/05/2015 23.03 DOCTOR: Romario Faust Interpretating Date/Time 12/28/2016 10:18:06
[2016-12-28] MEDS ORDERED: DEXAMETHASONE SOD PHOS 4 MG/ML VIAL ONE (11:26)
[2016-12-28] MEDS ORDERED: FAMOTIDINE 20 MG/2 ML VIAL ONE (11:26)
[2016-12-28] MEDS ORDERED: ceFAZolin INJ 1,000 MG VIAL IV ONE (12:31)
[2016-12-28] MEDS ORDERED: fentaNYL CITRATE 250 MCG/5 ML AMP ONE (13:19)
[2016-12-28 16:00] VITALS: BP 110/55; PULSE 93; RESP 17; TEMP 96.4; O2SAT 92
--- NOTE | 2016-12-28 17:35 | RADRPT ---
EXAM DATE/TIME: 12/28/2016 17:27 [facility] COMPARISON: CT BRAIN W/O CONTRAST, December 25, 2015, 5:31. INDICATIONS : Altered mental status; history of metastatic prostate cancer. RADIATION DOSE: 43.72 CTDIvol (mGy) MEDICAL HISTORY : Cardiovascular disease. Hypertension. Metastatic cancer. SURGICAL HISTORY : Prostatectomy. ENCOUNTER: Initial ACUITY: 1 day PAIN SCALE: 0/10 LOCATION: cranial TECHNIQUE: Multiple contiguous axial images were obtained of the head. Using automated exposure control and adj ustment of the mA and/or kV according to patient size, radiation dose was kept as low as reasonably a chievable to obtain optimal diagnostic quality images. FINDINGS: CEREBRUM: The ventricles are normal for age. No evidence of midline shift, mass lesion, hemorrhage or acute in farction. No extra-axial fluid collections are seen. POSTERIOR FOSSA: The cerebellum and brainstem are intact. The 4th ventricle is midline. The cerebellopontine angle i s unremarkable. EXTRACRANIAL: The visualized portion of the orbits is intact. SKULL: The calvaria is intact. No evidence of skull fracture. CONCLUSION: 1. No evidence of acute intracranial pathology. No masses are identified. Robert Campbell MD on December 28, 2016 at 17:32 Board Certified Radiologist. This report was verified electronically.
[2016-12-28 20:00] VITALS: BP 100/55; PULSE 93; RESP 17; TEMP 98.9; O2SAT 94
[2016-12-28 21:55] LABS: AUTOMATED NEUTROPHIL # 8.1 TH/MM3 (1.8-7.7); BASOPHIL % 0.1 % (0.0-2.0); HEMATOCRIT 22.7 % (39.0-51.0); HEMO FLAGS DIFF FINAL; LYMPH % 2.2 % (9.0-44.0); LYMPHOCYTE # 0.2 TH/MM3 (1.0-4.8); MEAN CELL VOLUME 97.6 FL (80.0-100.0); MEAN CORPUSCULAR HEMOGLOBIN 34.6 PG (27.0-34.0); MEAN CORPUSCULAR HGB CONC 35.4 % (32.0-36.0); MONO % 3.7 % (0.0-8.0); PLATELET COUNT 128 TH/MM3 (150-450); RED BLOOD COUNT 2.32 MIL/MM3 (4.50-5.90); RED CELL DISTRIBUTION WIDTH 14.9 % (11.6-17.2); WHITE BLOOD COUNT 8.6 TH/MM3 (4.0-11.0)
[2016-12-29] VITALS: BP 116/54; PULSE 135; RESP 22; O2SAT 95; O2SAT 96
--- NOTE | 2016-12-29 00:44 | HHI.PR ---
Subjective Remarks Called to see patient with hypoxia and altered mental status ,oxygen was in the 80.s with cyanotic lips ,i ordered chest xray and change to ventimast which improved his oxygen sat to 90,s and he was back to his baseline ,of note had some confusion yesterday and CT brain was done and was unremarkable Objective Vitals GENERAL: SKIN: Warm and dry. HEAD: Atraumatic. Normocephalic. EYES: Pupils equal and round. No scleral icterus. No injection or drainage. ENT: No nasal bleeding or discharge. Mucous membranes pink and moist. NECK: Trachea midline. No JVD. CARDIOVASCULAR: Regular rate and rhythm. RESPIRATORY: No accessory muscle use. Clear to auscultation. Breath sounds equal bilaterally. GASTROINTESTINAL: Abdomen soft, non-tender, nondistended. Hepatic and splenic margins not palpable. MUSCULOSKELETAL: Extremities without clubbing, cyanosis, or edema. No obvious deformities. NEUROLOGICAL: Awake and alert. No obvious cranial nerve deficits. Normal speech. PSYCHIATRIC: Appropriate mood and affect; insight and judgment normal. Vital Signs Date Time Temp Pulse Resp B/P Pulse Ox O2 Delivery O2 Flow Rate FiO2 12/29/16 00:00 95 Venturi Mask 50 12/28/16 16:00 96.4 93 17 110/55 92 12/28/16 14:52 98.4 101 22 103/51 94 Nasal Cannula 2 12/28/16 14:45 101 22 103/51 94 Nasal Cannula 2 12/28/16 14:30 95 20 101/51 93 Nasal Cannula 2 12/28/16 14:15 85 20 100/57 97 Nasal Cannula 2 12/28/16 14:00 85 20 100/52 96 Nasal Cannula 2 12/28/16 13:45 101 20 104/50 96 Nasal Cannula 2 12/28/16 13:30 123 20 103/54 98 Nasal Cannula 2 12/28/16 13:12 98.3 106 20 104/53 95 Nasal Cannula 2 12/28/16 07:48 97 12/28/16 07:29 98.8 99 18 112/58 12/28/16 02:47 98.4 92 18 109/57 96 12/28/16 12/28/16 12/29/16 15:00 23:00 07:00 Intake Total 800 ml 257 ml Output Total 575 ml 850 ml Balance 225 ml -593 ml Intake IV Total 100 ml 257 ml Other 700 ml Output Urine Total 500 ml 850 ml Estimated Blood Loss 75 ml Result Diagram: 12/28/16204712/28/16 0603 Imaging Last 24 hours Impressions Abdomen/Pelvis CT 12/26/162043 Signed Impressions: Service Date/Time: Monday, December 26, 2016 22:20 - CONCLUSION: Large heterogeneous filling defect in the urinary bladder. This may represent a combination of mass and hemorrhage. Mild/moderate bilateral hydronephrosis. Enlarging pancreatic cystic lesion which may represent a benign epithelial cyst. Colonic diverticulosis without evidence of active inflammatory disease. No evidence of malignant lymphadenopathy or destructive bone lesions. Heavily calcified coronary arteries. Evidence of previous prostate surgery. Goyo Reese MD Objective Remarks General: NAD, lethargic Chest: CTA Cardiac: Regular Abd: Distended, diffuse tenderness, Minimal bowel sounds : Maldonado catheter in place with hematuria noted Ext: No edema A/P Problem List: (1) Gross hematuria Status: Acute Plan: - Pt with prostate cancer s/p prostate resection, follows with Dr. Cid on and had a Maldonado catheter placed - comgmt with Urology, Dr. Lopez - Pt has h/o metastatic castrate resistant prostate cancer - Pt is presently on Zytiga & prednisone - Pt has known radiation cystitis. - He was brought in by EMS from home for evaluation of severe suprapubic pain, penile pain, and hematuria - CT Abd/pelvis (12/26) --> Large heterogeneous filling defect in the urinary bladder. This may represent a combination of mass and hemorrhage. Mild/moderate bilateral hydronephrosis. Enlarging pancreatic cystic lesion which may represent a benign epithelial cyst. Colonic diverticulosis without evidence of active inflammatory disease. No evidence of malignant lymphadenopathy or destructive bone lesions. Heavily calcified coronary arteries. Evidence of previous prostate surgery. - Pt to undergo cystoscopy, clot evacuation, and possible TURP with Dr. Lopez later today (12/28/16) - flomax - CBI - IVFs - Monitor H/H - B&O supp for spasms - Supportive care - DVT prophylaxis (2) Urinary retention Status: Chronic Plan: - See above. (3) Acute renal insufficiency Status: Acute Plan: - Pt with acute renal insufficiency - Pt with noted bilateral hydronephrosis on CT scan - Urology is consulted - Repeat labs today are worse ?secondary to IV contrast - Monitor labs - Cont. IVF (4) History of prostate cancer Status: Chronic Plan: - See above. (5) CAD (coronary artery disease) Status: Chronic Plan: - Pts Plavix has been held due to gross hematuria - Pt has had issues previously with orthostatic hypotension, not currently on any BP meds (6) Hypertension Status: Chronic Plan: - Stable currently - See above. - Pt became hypotensive with Morphine hold pain medication for upcoming procedure (7) GERD (gastroesophageal reflux disease) Status: Chronic (8) Hypoxia Status: Acute Plan: started on venti mask with improvement (9) Change in mental status Status: Acute Plan: improved after receiving oxygen will get cxr and labs in am as he did have confusion and for his safety will use soft restraints Problem Qualifiers (1) GERD (gastroesophageal reflux disease): Qualified Code: K21.9 - Gastroesophageal reflux disease, esophagitis presence not specified Malcolm Denise MD Dec 29, 2016 00:44
--- NOTE | 2016-12-29 01:11 | RADRPT ---
EXAM DATE/TIME: 12/29/2016 00:09 [facility] COMPARISON: CHEST SINGLE AP, December 25, 2015, 2:51. INDICATIONS : Short of breath. MEDICAL HISTORY : None. SURGICAL HISTORY : None. ENCOUNTER: Subsequent ACUITY: 2 days PAIN SCORE: Non-responsive. LOCATION: Bilateral chest FINDINGS: A single view of the chest demonstrates subsegmental basilar opacity most characteristic of atelectas is. No effusion. No pneumothorax. Tortuous aorta. CONCLUSION: 1. Minimal basilar atelectasis. No effusion or pneumothorax. Franky Fiore MD on December 29, 2016 at 1:03 Board Certified Radiologist. This report was verified electronically.
[2016-12-29 04:00] VITALS: BP 136/61; PULSE 90; RESP 21; TEMP 98.6; O2SAT 96
[2016-12-29] MEDS: SODIUM CHLOR 0.45% 1000 ML INJ 1,000 ML IV SCH (04:11)
[2016-12-29] MEDS: BELLADONNA ALKALOIDS/OPIUM 60 MG SUPP RECTAL SCH ×2 (06:00)
[2016-12-29 06:55] LABS: ALKALINE PHOSPHATASE 44 U/L (45-117); ALT (GPT) 18 U/L (12-78); ANION GAP 12 MEQ/L (5-15); AST (GOT) 44 U/L (15-37); BICARBONATE 19.5 MEQ/L (21.0-32.0); BLOOD UREA NITROGEN 44 MG/DL (7-18); CHLORIDE 105 MEQ/L (98-107); GLOMERULAR FILTRATION RATE 26 ML/MIN (>89); MAGNESIUM 2.3 MG/DL (1.5-2.5); POTASSIUM 4.4 MEQ/L (3.5-5.1); SODIUM (NA) 136 MEQ/L (136-145); TOTAL BILIRUBIN ADULT 2.7 MG/DL (0.2-1.0)
[2016-12-29 07:03] LABS: AUTOMATED NEUTROPHIL # 7.3 TH/MM3 (1.8-7.7); BASOPHIL % 0.3 % (0.0-2.0); HEMATOCRIT 21.6 % (39.0-51.0); HEMO FLAGS AUTO DIFF; LYMPH % 4.1 % (9.0-44.0); LYMPHOCYTE # 0.3 TH/MM3 (1.0-4.8); MEAN CELL VOLUME 99.4 FL (80.0-100.0); MEAN CORPUSCULAR HEMOGLOBIN 34.1 PG (27.0-34.0); MEAN CORPUSCULAR HGB CONC 34.3 % (32.0-36.0); MONO % 5.6 % (0.0-8.0); PLATELET COUNT 145 TH/MM3 (150-450); RED BLOOD COUNT 2.18 MIL/MM3 (4.50-5.90); RED CELL DISTRIBUTION WIDTH 15.3 % (11.6-17.2); WHITE BLOOD COUNT 8.1 TH/MM3 (4.0-11.0)
[2016-12-29 08:00] VITALS: BP 120/58; PULSE 89; RESP 19; TEMP 97.8; O2SAT 96
--- NOTE | 2016-12-29 08:26 | MP ---
cc: SHANNAN PAUL MD DATE OF OPERATION 12/28/2016 PREOPERATIVE DIAGNOSES 1. Hematuria with clot retention. 2. History of radiation cystitis. 3. History of prostate cancer status post radical retropubic prostatectomy and subsequent radiation therapy. 4. Castration-resistant metastatic prostate cancer. POSTOPERATIVE DIAGNOSES 1. Hematuria with clot retention. 2. History of radiation cystitis. 3. History of prostate cancer status post radical retropubic prostatectomy and subsequent radiation therapy. 4. Castration-resistant metastatic prostate cancer. PROCEDURE PERFORMED 1. Cystourethroscopy. 2. Clot evacuation 3. Bladder fulguration. SURGEON MD John ANESTHESIA General. COMPLICATIONS None. PREOP ANTIBIOTICS Ancef 1 gram IV. DRAINS A 22-Luxembourgish hematuria catheter on CBI to gravity drainage. SPECIMENS None. BLOOD LOSS Minimal. DISPOSITION Stable to Recovery. INDICATIONS The patient is an 81-year-old male with castration-resistant metastatic prostate cancer with no radiation cystitis who was admitted yesterday with clot retention. The patient had CT of the abdomen and pelvis without contrast done which showed a large heterogeneous mass in his bladder, likely a large blood clot and, due to his history of radiation cystitis, due to the catheter continuing to clot off, he was then set up for cystoscopy and clot evacuation, possible bladder fulguration today. After the risks, benefits and alternatives were explained, the patient elected to proceed and informed consent was obtained. DETAILS OF PROCEDURE The patient was properly identified, brought back to the cystoscopy suite where he was laid supine on the cystoscopy table. A proper time-out was performed under the direction of Anesthesiology. The patient and intubated, induced under general aesthetic. Preop antibiotics in the form of Ancef 1 gram IV was given at the start of the seizure. The patient was then placed in dorsal lithotomy position, prepped and draped in normal sterile surgical fashion. Using a rigid cystoscope with a 22-Luxembourgish sheath, I entered the patient's bladder per urethra without any difficulty. At that time a large organized blood clot was identified. Using Lissettik evacuator, I was able to remove this entire clot. At this time I was able to carefully examine his bladder. Both ureteral orifices were identified. However, his bladder was severely inflamed with radiation-like with changes consistent with a radiation cystitis. However, I did notice at the bladder neck there was an area of active bleeding. This was fulgurated with a Bugbee electrode. At this time the bladder was drained. A second look was performed. There was no evidence of any active bleeding. All visual clot had been removed. At this point the scope was removed. A 22-Luxembourgish, three-way Dipesh-Jet catheter was then placed and started on light CBI. This concluded the procedure. The patient was extubated and sent to Recovery in stable condition. He will be transferred back to the floor for routine postop care. If his urine remains clear overnight, we will void trial in the morning. He may benefit in the future from hyperbaric oxygen chamber. If he continues to bleed overnight, may then suggest trying intravesical Alum. MD BLAS Antonio/AKILA /4:18 PM /8:10 AM
[2016-12-29 08:53] LABS: SCAN/DIFF AUTO DIFF CONFIRMED
[2016-12-29 08:54] LABS: PLATELET ESTIMATE SMEAR LOW (NORMAL); PLATELET MORPHOLOGY NORMAL (NORMAL)
[2016-12-29] MEDS: SODIUM CHLORIDE 0.9% FLUSH 5 ML FLUSH FLUSH SCH (09:00)
[2016-12-29] MEDS: TAMSULOSIN HCL 0.4 MG CAP PO SCH (09:50)
[2016-12-29] MEDS: DOCUSATE SODIUM 100 MG CAP PO SCH (09:50)
[2016-12-29] MEDS: ATORVASTATIN 10 MG TAB PO SCH (09:50)
[2016-12-29] MEDS ORDERED: EPINEPHrine HCL (1:1000) 30 MG/30 ML VIAL IV ONE (13:28)
[2016-12-29] MEDS ORDERED: EPINEPHrine HCL (1:10,000) 1 MG/10 ML SYRINGE IV ONE (13:28)
[2016-12-29] MEDS ORDERED: SODIUM BICARBONATE 8.4% INJ 50 MEQ/50 ML SYR IV ONE (13:28)
--- NOTE | 2016-12-29 15:04 | PD.PROCEDR ---
Procedure Note Procedure CPR procedure note Presenting rhythm: Asystole Event Details: I arrived to the [facility] on the seventh floor. I was told brief history by the bedside nurse. In brief, 81-year-old male with metastatic prostate cancer status post cystoscopy. Presenting rhythm was asystole. We proceeded to perform ACLS approximately 15 to 20 minutes. I intubated the patient, see separate procedure note for details. There is obvious emesis around outside the mouth, in the hypopharynx, and the laryngeal opening. Pupils bilaterally fixed and dilated. Despite maximal therapy, patient never regained perfusing rhythm. Patient . Procedure Description: Arrived at [facility]. Followed ACLS guidelines. See code sheet for details. I was personally present for the entire CPR event. Chuckie Haque MD Dec 29, 2016 15:04
--- NOTE | 2016-12-29 15:06 | PD.PROCEDR ---
Procedure Note Procedure Endotracheal Intubation Diagnosis: Cardiac arrest Indications: Cardiac arrest Consent: Consent is deemed emergent or medically necessary Anesthesia: None Description of the Procedure: The patient was positioned in the sniffing position. Pre-oxygenation was performed using a [id number]. No anesthesia was given. A Shakila #4 was used for laryngoscopy and a Grade II view was obtained. A 8.0 cuffed endotracheal tube was inserted atraumatically through the vocal cords. Confirmation of correct endotracheal tube placement was made by equal and bilateral breath sounds and colorimetric CO2 detection. The endotracheal tube was secured at 23 cm at the teeth. There were no immediate complications noted. CPR was not held for this procedure. CPR continued throughout this procedure. CPR was ongoing at the conclusion of this procedure. I personally performed the procedure. Chuckie Haque MD Dec 29, 2016 15:06
--- NOTE | 2017-01-10 20:03 | HHI.DS ---
Discharge Summary Admission Date Dec 28, 2016 at 09:26 Discharge Date: Dec 29, 2016 Admitting Diagnosis gross hematuria, urinary retention (1) Cardiopulmonary arrest Diagnosis: Principal (2) Gross hematuria Diagnosis: Principal (3) Urinary retention Diagnosis: Principal (4) Acute renal insufficiency Diagnosis: Principal (5) History of prostate cancer Diagnosis: Secondary (6) CAD (coronary artery disease) Diagnosis: Secondary (7) Hypertension Diagnosis: Secondary (8) GERD (gastroesophageal reflux disease) Diagnosis: Secondary (9) Hypoxia Diagnosis: Secondary (10) Change in mental status Diagnosis: Secondary Brief History 81-year-old male with history of prostate cancer status post prostate resection , seen by [facility] urologist Dr. Cid earlier today and had a Quintanilla catheter placed, brought in by EMS from home for evaluation of severe suprapubic and penile pain. The patient reports that he was having some suprapubic pain and around noon today which worsen, so he decided to present to the urology office. He is not sure exactly why they placed a Quintanilla catheter, but it sounds like he may been in urinary retention. Patient has also noted a significant amount of blood in the Quintanilla bag. Pain is 12 out of 10, constant, pressure-like. The patient was given 4 mg of IV morphine by EMS with moderate improvement in pain. He denies fevers or chills. No nausea or vomiting Patient's Quintanilla has been flushed with about a liter of normal saline and is still producing dark red blood. He is on Plavix. This was discussed with on- call urologist Dr. Black who agrees that if dark red bloody is not clearing, then CBI should be started and the patient should be admitted for overnight observation with urology consultation. 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 Imaging Last Impressions Head CT 12/28/16 0000 Signed Impressions: Service Date/Time: Wednesday, December 28, 2016 17:27 - CONCLUSION: 1. No evidence of acute intracranial pathology. No masses are identified. Robert Campbell MD Chest X-Ray 12/28/16 0000 Signed Impressions: Service Date/Time: December 00:09 - CONCLUSION: 1. Minimal basilar atelectasis. No effusion or pneumothorax. Franky Fiore MD Abdomen/Pelvis CT 12/26/162043 Signed Impressions: Service Date/Time: Monday, December 26, 2016 22:20 - CONCLUSION: Large heterogeneous filling defect in the urinary bladder. This may represent a combination of mass and hemorrhage. Mild/moderate bilateral hydronephrosis. Enlarging pancreatic cystic lesion which may represent a benign epithelial cyst. Colonic diverticulosis without evidence of active inflammatory disease. No evidence of malignant lymphadenopathy or destructive bone lesions. Heavily calcified coronary arteries. Evidence of previous prostate surgery. Goyo Reese MD PE at Discharge General: NAD, lethargic Chest: CTA Cardiac: Regular Abd: Distended, diffuse tenderness, Minimal bowel sounds : Quintanilla catheter in place with hematuria noted Ext: No edema Hospital Course (1) Gross hematuria Status: Acute Plan: - Pt with prostate cancer s/p prostate resection, follows with Dr. Cid on and had a Quintanilla catheter placed - comgmt with Urology, Dr. Lopez - Pt has h/o metastatic castrate resistant prostate cancer - Pt received Zytiga & prednisone - Pt has known radiation cystitis. - He was brought in by EMS from home for evaluation of severe suprapubic pain, penile pain, and hematuria - CT Abd/pelvis (12/26) --> Large heterogeneous filling defect in the urinary bladder. This may represent a combination of mass and hemorrhage. Mild/moderate bilateral hydronephrosis. Enlarging pancreatic cystic lesion which may represent a benign epithelial cyst. Colonic diverticulosis without evidence of active inflammatory disease. No evidence of malignant lymphadenopathy or destructive bone lesions. Heavily calcified coronary arteries. Evidence of previous prostate surgery. - Pt underwent cystoscopy, clot evacuation, and bladder fluguration with Dr. Lopez (12/28/16) - flomax - CBI - Pt had cardiopulmonary arrest 12/29/16 - ACLS was initiated by CCU team, despite maximal efforts patient Pt Condition on Discharge: Deteriorating (Pt found in asystole. ACLS per protocol by CCM team. Resusciation was unsuccessful and patient ) Joe Soto DO Jan 10, 2017 20:03
--- NOTE | 2017-01-11 16:07 | HHI.DS ---
Summary Note Date of : Dec 29, 2016 Time Of : 1132 Admission Date Dec 28, 2016 at 09:26 Admitting Diagnosis gross hematuria, urinary retention Diagnosis at Time of : (1) Cardiopulmonary arrest ICD Code: I46.9 Diagnosis: Principal (2) Gross hematuria ICD Code: R31.0 Diagnosis: Principal (3) Urinary retention ICD Code: R33.9 Diagnosis: Principal (4) Acute renal insufficiency ICD Code: N28.9 Diagnosis: Principal (5) History of prostate cancer ICD Code: Z85.46 Diagnosis: Secondary (6) CAD (coronary artery disease) ICD Code: I25.10 Diagnosis: Secondary (7) Hypertension ICD Code: I10 Diagnosis: Secondary (8) GERD (gastroesophageal reflux disease) ICD Code: K21.9 Diagnosis: Secondary (9) Hypoxia ICD Code: R09.02 Diagnosis: Secondary (10) Change in mental status ICD Code: R41.82 Diagnosis: Secondary Procedures - Pt underwent cystoscopy, clot evacuation, and bladder fluguration with Dr. Lopez (12/28/16) Brief History 81-year-old male with history of prostate cancer status post prostate resection , seen by [facility] urologist Dr. Cid earlier today and had a Quintanilla catheter placed, brought in by EMS from home for evaluation of severe suprapubic and penile pain. The patient reports that he was having some suprapubic pain and around noon today which worsen, so he decided to present to the urology office. He is not sure exactly why they placed a Quintanilla catheter, but it sounds like he may been in urinary retention. Patient has also noted a significant amount of blood in the Quintanilla bag. Pain is 12 out of 10, constant, pressure-like. The patient was given 4 mg of IV morphine by EMS with moderate improvement in pain. He denies fevers or chills. No nausea or vomiting Patient's Quintanilla has been flushed with about a liter of normal saline and is still producing dark red blood. He is on Plavix. This was discussed with on- call urologist Dr. Black who agrees that if dark red bloody is not clearing, then CBI should be started and the patient should be admitted for overnight observation with urology consultation. 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 Imaging Last Impressions Head CT 3/1/17 0000 Signed Impressions: Service Date/Time: Wednesday, December 28, 2016 17:27 - CONCLUSION: 1. No evidence of acute intracranial pathology. No masses are identified. Robert Campbell MD Chest X-Ray 12/28/16 0000 Signed Impressions: Service Date/Time: December 00:09 - CONCLUSION: 1. Minimal basilar atelectasis. No effusion or pneumothorax. Franky Fiore MD Abdomen/Pelvis CT 12/26/162043 Signed Impressions: Service Date/Time: Monday, December 26, 2016 22:20 - CONCLUSION: Large heterogeneous filling defect in the urinary bladder. This may represent a combination of mass and hemorrhage. Mild/moderate bilateral hydronephrosis. Enlarging pancreatic cystic lesion which may represent a benign epithelial cyst. Colonic diverticulosis without evidence of active inflammatory disease. No evidence of malignant lymphadenopathy or destructive bone lesions. Heavily calcified coronary arteries. Evidence of previous prostate surgery. Goyo Reese MD Hospital Course - Pt with prostate cancer s/p prostate resection, follows with Dr. Cid on and had a Quintanilla catheter placed - comgmt with Urology, Dr. Lopez - Pt has h/o metastatic castrate resistant prostate cancer - Pt received Zytiga & prednisone - Pt has known radiation cystitis. - He was brought in by EMS from home for evaluation of severe suprapubic pain, penile pain, and hematuria - CT Abd/pelvis (12/26) --> Large heterogeneous filling defect in the urinary bladder. This may represent a combination of mass and hemorrhage. Mild/moderate bilateral hydronephrosis. Enlarging pancreatic cystic lesion which may represent a benign epithelial cyst. Colonic diverticulosis without evidence of active inflammatory disease. No evidence of malignant lymphadenopathy or destructive bone lesions. Heavily calcified coronary arteries. Evidence of previous prostate surgery. - Pt underwent cystoscopy, clot evacuation, and bladder fluguration with Dr. Lopez (12/28/16) - flomax - CBI - Pt had cardiopulmonary arrest 12/29/16 - ACLS was initiated by CCU team, despite maximal efforts patient Joe Soto DO Jan 11, 2017 16:07
== END 2016-12-29 13:29 | disposition expired | DRG 669 ==
LOC: NEPE 20:10 → NEDA 23:26 → NEPGCP 12-27 01:48 → OBSVTOIN 12-28 09:26 → N07B 12-28 11:50
PROVIDERS: ADMIT Hospitalist; ATTEND Hospitalist
PROC: 0T9B8ZZ Drainage of Bladder, Via Natural or Artificial Opening Endoscopic (ICD-10-PCS; 2016-12-28)
PROC: 0T5C8ZZ Destruction of Bladder Neck, Via Natural or Artificial Opening Endoscopic (ICD-10-PCS; principal; 2016-12-28 12:08)
PROC: 5A12012 Performance of Cardiac Output, Single, Manual (ICD-10-PCS; 2016-12-29)
PROC: 0BH17EZ Insertion of Endotracheal Airway into Trachea, Via Natural or Artificial Opening (ICD-10-PCS; 2016-12-29)
DX: N30.41 Irradiation cystitis with hematuria (principal); N13.30 Unspecified hydronephrosis; I46.9 Cardiac arrest, cause unspecified; I11.0 Hypertensive heart disease with heart failure; C79.51 Secondary malignant neoplasm of bone; I50.9 Heart failure, unspecified; J44.9 Chronic obstructive pulmonary disease, unspecified; E78.5 Hyperlipidemia, unspecified; K21.0 Gastro-esophageal reflux disease with esophagitis; Z95.5 Presence of coronary angioplasty implant and graft; Z87.891 Personal history of nicotine dependence; Z78.1 Physical restraint status; Z85.46 Personal history of malignant neoplasm of prostate
CPT/HCPCS: 31500; 70450; 71010; 74177; 80048; 80053; 83735; 85025; 85610; 85730; 86850; 86900; 86901; 92950; 93005; 96374; G0378; J0171; J0690; J1100; J2270; J2370; J2405; J3010; Q9967